=== PATIENT | female | born 1995 | race Caucasian/White ===

== ENCOUNTER 2022-09-13 12:14 | Emergency (ER) | payer OTHER ==
[2022-09-13 12:23] VITALS: TEMP 99; BMI 20.7
[2022-09-13 13:13] LABS: HEMATOCRIT 42.8 % (32.4-45.2); HEMOGLOBIN 14.6 G/dL (10.7-15.3); MCH 29.8 pg (25.7-33.7); MEAN CELL VOLUME 87.6 fl (80-96); MEAN PLT VOLUME 9.3 fl (7.5-11.1); RBC 4.89 10^6/uL (3.60-5.2); RDW 13.9 % (11.6-15.6); WHITE BLOOD COUNT 9.2 10^3/uL (4.0-10.8)
[2022-09-13 13:17] LABS: HCG,QUALITATIVE URINE Negative
[2022-09-13 13:36] LABS: ALBUMIN 4.5 g/dl (3.4-5.0); BILIRUBIN,TOTAL 0.7 mg/dl (0.2-1); CALCIUM 10.1 mg/dl (8.5-10.1); CREATININE 0.8 mg/dl (0.6-1.3); POTASSIUM 3.7 mmol/L (3.5-5.1); SGOT/AST 20.9 U/L (15-37); SGPT/ALT 12.6 U/L (7-52); TOT PROT 7.4 g/dl (6.4-8.2)
[2022-09-13] MEDS ORDERED: SODIUM CHLORIDE 0.9% 500 ML INFUS.BAG IV ONE (14:00)
[2022-09-13 14:06] LABS: EPITHELIAL CELLS FEW /hpf
[2022-09-13 14:17] LABS: PLATELET ESTIMATE ADEQUATE
[2022-09-13 16:01] VITALS: BP 118/74; PULSE 87; RESP 16
== END 2022-09-13 16:35 | disposition home or self-care (01) ==
LOC: FER 12:14
DX: K62.5 Hemorrhage of anus and rectum (principal); K55.30 Necrotizing enterocolitis, unspecified; R10.9 Unspecified abdominal pain; R68.81 Early satiety; R11.0 Nausea; R63.0 Anorexia
CPT/HCPCS: 36415; 74174-TC; 80053; 81003; 81015; 82272; 84703; 85027; 86850; 86900; 86901; 87086; 99285-25; Q9967